=== PATIENT | female | born 1955 | race Caucasian/White ===

== ENCOUNTER 2024-01-17 08:28 | Outpatient (RCR) | payer MEDICARE, BC ==
[~2024-01-17] VITALS: Ht 167.6 cm; Wt 89.4 kg
== END 2024-02-12 | disposition home or self-care (01) ==
LOC: CARDREHAB
DX: Z48.812 Encounter for surgical aftercare following surgery on the circulatory system (principal); Z95.5 Presence of coronary angioplasty implant and graft

== ENCOUNTER 2024-02-15 10:00 | Outpatient (RCR) | payer MEDICARE, BC | END 2024-03-14 | disposition home or self-care (01) | LOC: CARDREHAB | DX: Z48.812 Encounter for surgical aftercare following surgery on the circulatory system (principal); Z95.5 Presence of coronary angioplasty implant and graft ==